=== PATIENT | female | born 1985 | race Caucasian/White ===

== ENCOUNTER 2018-10-23 19:42 | Emergency (ER) | payer MEDICAID ==
[~2018-10-23] VITALS: Ht 157.5 cm; Wt 62.3 kg
[2018-10-23 19:54] VITALS: BP 120/58; PULSE 100; RESP 16; Ht 157.5 cm; Wt 62.3 kg
[2018-10-23] MEDS ORDERED: ACETAMINOPHEN 325 MG TAB PO STA (22:07)
[2018-10-23] MEDS ORDERED: ACET325T33 PO (23:28)
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
== END 2018-10-23 23:48 | disposition home or self-care (01) ==
LOC: FTE 19:42
DX: O26.891 Other specified pregnancy related conditions, first trimester (principal); R10.9 Unspecified abdominal pain; Z3A.11 11 weeks gestation of pregnancy
CPT/HCPCS: 36415; 76801; 81001; 84702; 85025; Z7502; Z7610

== ENCOUNTER 2019-01-19 20:07 | Outpatient (CLI) | payer MEDICAID ==
[~2019-01-19] VITALS: Ht 154.9 cm; Wt 70.5 kg
[~2019-01-19 20:07] MED LIST: ACET325T33 PO
[2019-01-19 20:54] VITALS: BP 103/52; PULSE 101; RESP 18
[2019-01-19] MEDS ORDERED: ACETAMINOPHEN 500 MG TAB PO ONE (21:54)
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
--- NOTE | 2019-01-20 20:08 | PN ---
Triage Information Date/Time 01/19/2019 Reason for visit: vaginal pain, back pain, cramping. Weeks of Gestation 23 weeks and 4 days /Para Diabetes: none Hypertention: none Additional information 33 years old female with IUP at 23 weeks and 4 days and twin gestation and vaginal pain, back pain and cramping pain. 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 Patient denies any urinary symptoms. Denies any LOF, vaginal bleeding or decreased movement. Objective Vital Signs Date Temp Pulse Resp B/P (MAP) Pulse Ox O2 O2 Flow FiO2 Time Delivery Rate 01/19/19 97.4 101 18 103/52 Room Air 20:54 (69) Heart Rate: 130's Contractions: < 5 Minutes Apart Exam GA: A&O, NAD Abdomen: soft, non tender.Size larger than date due to twin gestation NST. Appropriate for GA irrgular contractions noted that resolved with hydration. Results/Medications Result Diagram: 01/19/192229 Results 24 hrs Laboratory Tests Test 01/19/19 20:20 01/19/19 21:35 01/19/19 22:30 Urine Color YELLOW Urine Clarity CLEAR Urine pH 6.0 Urine Specific [place] 1.023 Urine Ketones NEGATIVE Urine Nitrite NEGATIVE Urine Bilirubin NEGATIVE Urine Urobilinogen NEGATIVE Urine Leukocyte Esterase NEGATIVE Urine Microscopic RBC 26 H Urine Microscopic WBC 1 Urine Mucus FEW A Urine Hemoglobin 1+ H Urine Glucose NEGATIVE Urine Total Protein NEGATIVE Urine Opiates Screen Negative Urine Barbiturates Negative Urine Amphetamines Screen POSITIVE Urine Benzodiazepines Screen Negative Urine Cocaine Screen Negative Urine Cannabinoids Negative Membranes Rupture NEGATIVE White Blood Count 13.5 H Red Blood Count 2.98 #L Hemoglobin 8.7 #L Hematocrit 25.7 #L Mean Corpuscular Volume 86.2 Mean Corpuscular Hemoglobin 29.2 Mean Corpuscular Hemoglobin Concent 33.9 Red Cell Distribution Width 13.2 Platelet Count 316 Mean Platelet Volume 8.8 Immature Granulocytes % 3.300 H Neutrophils % 65.5 Lymphocytes % 20.3 Monocytes % 8.5 Eosinophils % 2.0 Basophils % 0.4 Nucleated Red Blood Cells % 0.0 Immature Granulocytes # 0.450 H Neutrophils # 8.8 H Lymphocytes # 2.7 Monocytes # 1.1 H Eosinophils # 0.3 Basophils # 0.1 Nucleated Red Blood Cells # 0.0 Kleihauer-Betke Stain 0.0000 Imaging Results PROCEDURE: US OB twins. CLINICAL INDICATION: labor TECHNIQUE: Multiple sonographic images of the pelvis were obtained. The images were reviewed on a PACS workstation. COMPARISON: 12/29/2018 FINDINGS: The cervix is 3.5 cm in length There is a live twin intrauterine gestation. Twin A: Cardiac activity is present with 152 beats per minute. The fetus is in longitudinal lie, cephalic presentation. The placenta is anterior. Measurements were made in order to determine age. The results are as follows: BPD = 5.9 cm HC = 21.6 cm AC = 19.0 cm FL = 4.3 cm. Based on these current measurements: Estimated gestational age of approximately 23 weeks 6 days. The estimated date of delivery is 05/12/2019. The EFW = 633 g . Twin B: Cardiac activity is present with 134 beats per minute. The fetus is in longitudinal lie, breech presentation. The placenta is posterior. Measurements were made in order to determine age. The results are as follows: BPD = 5.7 cm HC = 21.6 cm AC = 19.9 cm FL = 4.3 cm. Based on these current measurements: Estimated gestational age of approximately 23 weeks 6 days. The estimated date of delivery is 05/11/2019. The EFW = 675 g . Complete survey is not performed at this time. There is a normal amount of amniotic fluid. IMPRESSION: 1. Twin gestation at approximately 23 weeks 6 days by the above biometrics. The estimated date of delivery is 05/11/2019 . 2. positions as noted above. 3. Anterior and posterior placentas. 4. Amniotic fluid volume is well within normal limits. RPTAT:AAJJ Physician Anum Date Time Electronically viewed and signed by Physician Anum on 01/19/2019 21:52 GW/ CC: ALVARO BOSWELL MD [phone] Disposition: Discharge Assessment/Plan IUP Twin gestation at 23 weeks and 4 days Cramps and vaginal pain, due to likely dehyration Symptoms resolved with IV hydration no evidence of Abruption or PPROM or PTL. CBC normal. KB negative History of SA, U tox positive for Meth. 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 Continue Iron and vitamin follow up in 2 days with OB office or sooner PRN PTL precaution, FKC Adequate hydration. . ALVARO BOSWELL MD Jan 20, 2019 20:07
== END 2019-01-20 00:28 | disposition home or self-care (01) ==
LOC: OBT 20:07 → L-D 20:09 → OBT 01-20 00:28
PROVIDERS: ATTEND Obstetrics & Gynecology
DX: O60.02 Preterm labor without delivery, second trimester (principal); Z3A.23 23 weeks gestation of pregnancy; O30.002 Twin pregnancy, unspecified number of placenta and unspecified number of amniotic sacs, second trimester
CPT/HCPCS: 76815; 76817; 80307; 81001; 84112; 85025; 85460; Z7500; Z7610; G0463

== ENCOUNTER 2019-01-31 13:26 | Inpatient (IN) | payer MEDICAID ==
[~2019-01-31] VITALS: Ht 152.4 cm; Wt 69.1 kg
[2019-01-31 14:00] VITALS: Ht 152.4 cm; Wt 69.1 kg
[2019-01-31 14:02] VITALS: BP 101/19; PULSE 101; RESP 20
[2019-01-31] MEDS ORDERED: ACETAMINOPHEN 500 MG TAB PO STA (14:45)
[2019-01-31] MEDS ORDERED: LACTATED RINGER'S 1,000 ML IV SCH (15:36)
--- NOTE | 2019-01-31 15:56 | HP ---
Date/Time of Note Date/Time of Note DATE: 01/31/19 TIME: 15:47 OB - History Hx of Present Free Text/Dictation History of present illness: 33-year-old G 7 P 4 with di-di-twin gestation and complaints of back pain/vaginal pain/inguinal pain. Denies any leakage of fluid or vaginal bleeding. Patient reports that she has not been seen for obstetric care since November due to social restrictions. She has been living in a motel. Obstetric history: General delivery at term x4. SAB x2. Gynecology: Last menstrual period approximately 08/07/2018 with an SAGAR of 05/14/2019 Past medical history: Depression in 2018 Surgical history: None Family history: Noncontributory Social history: negative for tobacco/alcohol/+ for amphetamines drugs Allergies: No known drug allergies Medications: vitamins Physical exam Vitals: Stable General: No apparent distress Cardiovascular: Regular rate and rhythm Pulmonary: Clear to auscultation bilaterally Abdomen: Gravid SVE: 2/50/high Extremities: Nontender to palpation Psychological: Alert oriented labs: Blood type: B positive H/H: 13.4/38.6 Rubella: immune HepBSAg: nonreactive RPR: NR HIV: negative GC/CT: negative GBS: unknown Assessment/plan: 1. 33 yo at 25 2/7 wgaq w labor-to be admitted to labor and delivery. Advised that she will require corticosteroids/magnesium sulfate for neuro protection/neonatology consult and maternal- medicine consult. We will start her on prophylaxis for GBS unknown. Wet mount and GBS pending. Social consult pending. All inquiries addressed. US dating pending records from clinic. By LMP at 25 2/7 weeks gestation 2. Di/Di twin gestation-EFWs 3. AMA-expectant 4. Drug use-urine drug screen 5. Social-social service consult pending. Past Family/Social History * Past Medical, Surgical, Family and Obstetric Histories reviewed from chart. OB Admission Exam Vital Signs Vital Signs Vital Signs Date Temp Pulse Resp B/P (MAP) Pulse Ox O2 O2 Flow FiO2 Time Delivery Rate 01/31/19 98.3 101 20 101/19 Room Air 14:02 (46) SAMREEN NAVARRO MD Jan 31, 2019 15:56
[2019-01-31] MEDS ORDERED: BETAMET NA PHOS/AC(6 MG/ML) 2 ML INJ SYG IM ONE (16:00)
[2019-01-31] MEDS ORDERED: OXYTOCIN 30 UNITS/LR 500 ML IV PRN (16:00)
[2019-01-31] MEDS ORDERED: CARBOPROST 250 MCG INJ IM PRN (16:00)
[2019-01-31] MEDS ORDERED: OXYTOCIN 30 UNITS/LR 500 ML IV SCH ×2 (16:00)
[2019-01-31] MEDS ORDERED: METHYLERGONOVINE 0.2 MG INJ IM PRN (16:00)
[2019-01-31] MEDS ORDERED: MAGNESIUM SULFATE 4 GM/100 ML 100 ML IV SCH (16:00)
[2019-01-31] MEDS ORDERED: MISOPROSTOL 200 MCG TAB PR PRN (16:00)
[2019-01-31] MEDS ORDERED: AMPICILLIN 2 GM/NS (PMX) 100 ML IV ONE (16:00)
[2019-01-31] MEDS ORDERED: NACL 0.9% 3 ML SYG IV SCH ×2 (16:00)
[2019-01-31] MEDS ORDERED: LIDOCAINE 1% (MPF) 30 ML INJ INJ PRN (16:00)
[2019-01-31] MEDS ORDERED: CA GLUCONATE (GM) 10% 10ML INJ IV PRN (16:00)
[2019-01-31] MEDS: LACTATED RINGER'S 1,000 ML IV SCH (16:25)
[2019-01-31] MEDS ORDERED: ONDANSETRON 4 MG INJ ONE (17:38)
[2019-01-31] MEDS ORDERED: ONDANSETRON 4 MG INJ IV STA (17:41)
[2019-01-31] MEDS: BETAMET NA PHOS/AC(6 MG/ML) 2 ML INJ SYG IM ONE (17:52)
[2019-01-31] MEDS: MAGNESIUM SULFATE 20 GM/500 ML 500 ML IV SCH (18:07)
[2019-01-31] MEDS: AMPICILLIN 1 GM/NS (PMX) 50 ML IV SCH (22:06)
[2019-02-01] MEDS: LACTATED RINGER'S 1,000 ML IV SCH ×3 (02:01→18:03)
[2019-02-01] MEDS: AMPICILLIN 1 GM/NS (PMX) 50 ML IV SCH ×6 (02:02→22:00)
[2019-02-01] MEDS: MAGNESIUM SULFATE 20 GM/500 ML 500 ML IV SCH ×3 (04:41→21:36)
--- NOTE | 2019-02-01 12:01 | CONS ---
Assessment/Plan Assessment/Plan Assessment/Plan (Daily) I have spoken to the mother with the help of an spanish medical interpreter as she speaks only Green[place]ic. Explained to her extreme prematurity, extremely low birthweight, attendant risks with twin gestation, respiratory distress syndrome, ventilatory assistance, risk for chronic lung disease and oxygen dependency, survival greater than 80% based on when she delivers, risk for intercurrent infections, antibiotic therapy, high risk for intraventricular hemorrhage, developmental problems including but not limited to delayed milestones, low intelligence, school problems if the baby survive and cerebral palsy, retinopathy of prematurity, vision problems, feeding problems, necrotizing enterocolitis, slow feeding of prematurity, jaundice, and general treatment plan, general procedures done in NICU and alternatives and risks of management. Mom seems to understand the risks with prematurity and wants to go home to take care of her children and she is also positive for methamphetamines . I have explained her about possible blood transfusion and general procedures done in NICU and answered her questions. I have spent 30 to 35 minutes of my time in reviewing the chart, lab tests, ultrasounds, you speaking to the loading dock hand regarding the care and follow, coordinating care with ancillary personnel and most of the time in talking to the mother and dictating consult note. Thank you very much for allowing me to take part in the care of this patient, will follow the mother, and attend the delivery as needed and follow the babies. Consultation Date/Type/Reason Admit Date/Time Jan 31, 2019 at 15:35 Date of Consultation: Feb 01, 2019 Type of Consult consult at 25 and 2/[address] Ovalle. Reason for Consultation labor with short cervix at 25 and 2 / 7 weeks with twin gestation Date/Time of Note DATE: 02/01/19 TIME: 11:52 Hx of Present Illness 33-year-old 8, para 4 3 mom with di amniotic and di chorionic twin gestation admitted with history of back, vaginal and inguinal pain. She had care at [facility] and has not seen a doctor since November due to social reasons. She has been living in a motel with her other 4 children. She has history of 4 term deliveries and 3 spontaneous abortions. LMP is 08/07 and SAGAR is 05/14/2019 . 25 2/7 weeks She is on magnesium sulfate, given 1 dose of betamethasone with the second 1 due today and had ultrasound done with estimated weight of 814 and 887 g. She is afebrile and remains on antibiotics. She is B, Rh+, rubella immune, hep atitis B surface antigen negative, RPR nonreactive, HIV negative, gonococcal and chlamydial cultures negative. Her urine drug screen is positive for amphetamines . Past Medical History Home Meds No Active Prescriptions or Reported Meds Medications Current Medications Lactated Ringer's 1,000 ml @ 125 mls/hr Q8H IV Last administered on 02/01/19at 10:26; Admin Dose 125 MLS/HR; Start 01/31/19 at 15:36 Ampicillin 50 ml @ 100 mls/hr Q4H IV Last administered on 02/01/19at 10:25; Admin Dose 100 MLS/HR; Start 01/31/19 at 20:00 Magnesium Sulfate 500 ml @ 50 mls/hr Q10H IV Last administered on 02/01/19at 04:41; Admin Dose 50 MLS/HR; Start 01/31/19 at 15:36 Calcium Gluconate (Ca Gluc) 1 gm ONCE PRN IV FOR MAGNESIUM TOXICITY; Start 01/31/19 at 16:00 IV Flush (NS 3 ml) 3 ml PER PROTOCOL IV ; Start 01/31/19 at 16:00 Betamethasone Acet/Betameth SodPhos (Celestone Soluspan) 12 mg ONCE ONCE IM ; Start 02/01/19 at 16:00; Stop 02/01/19 at 16:01 Allergies: Coded Allergies: No Known Drug Allergy (Verified Allergy, Unknown, 01/31/19) Social History Smoking Status: Never smoker Exam/Review of Systems Exam Vitals Vital Signs Date Temp Pulse Resp B/P (MAP) Pulse Ox O2 O2 Flow FiO2 Time Delivery Rate 01/31/19 98.4 18:16 01/31/19 101 20 101/19 Room Air 14:02 (46) Intake and Output 01/31/19 01/31/19 02/01/19 1515:00 23:00 07:00 IntakeIntake Total 1175 ml 1770 ml OutputOutput Total 100 ml 2600 ml BalanceBalance 1075 ml -830 ml Results Result Diagram: 01/31/19 1558 Results 24hrs Laboratory Tests Test 01/31/19 15:50 01/31/19 15:58 7/23/19 01:31 02/01/19 06:17 Urine Color YELLOW Urine Clarity CLOUDY A Urine pH 5.0 Urine Specific 1.023 [place] Urine Ketones NEGATIVE Urine Nitrite NEGATIVE Urine Bilirubin NEGATIVE Urine Urobilinogen NEGATIVE Urine Leukocyte 1+ H Esterase Urine Microscopic 3 RBC Urine Microscopic 7 H WBC Urine Squamous MANY A Epithelial Cells Urine Calcium MANY A Oxalate Crystals Urine Bacteria FEW A Urine Mucus MODERATE Urine Hemoglobin NEGATIVE Urine Glucose NEGATIVE Urine Total NEGATIVE Protein Urine Opiates Negative Screen Urine Barbiturates Negative Urine Amphetamines POSITIVE Screen Urine Negative Benzodiazepines Screen Urine Cocaine Negative Screen Urine Cannabinoids Negative White Blood Count 11.9 H Red Blood Count 3.06 L Hemoglobin 8.7 L Hematocrit 26.5 L Mean Corpuscular 86.6 Volume Mean Corpuscular 28.4 L Hemoglobin Mean Corpuscular 32.8 Hemoglobin Concent Red Cell 13.2 Distribution Width Platelet Count 344 Mean Platelet 9.1 Volume Immature 2.100 H Granulocytes % Neutrophils % 65.8 Lymphocytes % 21.2 Monocytes % 8.4 Eosinophils % 1.9 Basophils % 0.6 Nucleated Red 0.0 Blood Cells % Immature 0.250 H Granulocytes # Neutrophils # 7.8 H Lymphocytes # 2.5 Monocytes # 1.0 H Eosinophils # 0.2 Basophils # 0.1 Nucleated Red 0.0 Blood Cells # Prothrombin Time 13.2 Prothrombin Time 1.0 Ratio INR International 0.99 Normalized Ratio Activated 27.[address] Time Magnesium Level 4.7 H 5.1 *H Test 02/01/19 06:29 Lab Scanned Report REFERENCE LAB Medications Medication Current Medications Lactated Ringer's 1,000 ml @ 125 mls/hr Q8H IV Last administered on 02/01/19at 10:26; Admin Dose 125 MLS/HR; Start 01/31/19 at 15:36 Ampicillin 50 ml @ 100 mls/hr Q4H IV Last administered on 02/01/19at 10:25; Admin Dose 100 MLS/HR; Start 01/31/19 at 20:00 Magnesium Sulfate 500 ml @ 50 mls/hr Q10H IV Last administered on 02/01/19at 04:41; Admin Dose 50 MLS/HR; Start 01/31/19 at 15:36 Calcium Gluconate (Ca Gluc) 1 gm ONCE PRN IV FOR MAGNESIUM TOXICITY; Start 01/31/19 at 16:00 IV Flush (NS 3 ml) 3 ml PER PROTOCOL IV ; Start 01/31/19 at 16:00 Betamethasone Acet/Betameth SodPhos (Celestone Soluspan) 12 mg ONCE ONCE IM ; Start 02/01/19 at 16:00; Stop 02/01/19 at 16:01 JOHN MARSH MD Feb 01, 2019 12:01
[2019-02-01] MEDS: BETAMET NA PHOS/AC(6 MG/ML) 2 ML INJ SYG IM ONE (18:07)
[2019-02-02] MEDS: AMPICILLIN 1 GM/NS (PMX) 50 ML IV SCH ×2 (01:58→05:59)
[2019-02-02] MEDS: MAGNESIUM SULFATE 20 GM/500 ML 500 ML IV SCH ×2 (02:03→19:00)
[2019-02-02] MEDS: LACTATED RINGER'S 1,000 ML IV SCH ×4 (02:16→23:36)
--- NOTE | 2019-02-02 02:38 | PN ---
Date/Time of Note Date/Time of Note DATE: 02/02/19 TIME: 02:28 OB Subjective Subjective Subjective Late entry note. Patient seen on 02/01/2019 patient seen and examined. She states good movement. She denies nausea, vomiting, shortness of breath, chest pain, abdominal pain, headache, visual ch anges, vaginal bleeding or LOF. OB Objective Objective Objective General: Patient appears well, alert and oriented, NAD, appropriate mood and affect ABD: gravid, soft, non-tender. Back: No CVA tenderness (B/L) LE: Mild edema. No clubbing, cyanosis, edema, thigh or calf tenderness bilaterally FHT: 130, 135 bpm , moderate variability with acceleration, no deceleration- category I Contractions: Occasional OB Assessment/Plan Other plan: 33 years old -0-3-4 with di-/Di twin gestation at 25 weeks and 3 days with labor. - FHRs: Reassuring. No sign of metabolic acidosis- Category I - Contractions:Occasional - Continuous EFM, toco - She has received 2 dose of betamethasone, last dose at 1800 on 02/02/2008 - She received magnesium sulfate for neuro protection, continue 24 hours after receiving second dose of betamethasone - B+/rubella immune/GBS positive 2. Urine drug screen is positive for amphetamines. She has history of amphetamine abuse too. herbarium worker consult placed JERED MA Feb 02, 2019 02:38
--- NOTE | 2019-02-02 17:39 | QN ---
Documentation Comment 33 years old -0-3-4 with di-/Di twin gestation at 25 weeks and 4 days with labor. - FHRs: Reassuring. No sign of metabolic acidosis- Category I - Contractions:Occasional - Continuous EFM, toco - She has received 2 dose of betamethasone, last dose at 1800 on 02/01/2019, she was seen by perinatologist today who recommend discharge home tomorrow - She received magnesium sulfate for neuro protection, continue 24 hours after receiving second dose of betamethasone - B+/rubella immune/GBS positive 2. Urine drug screen is positive for amphetamines. She has history of amphetamine abuse too. chip loft worker consult appreciated JERED MA Feb 02, 2019 17:39
[2019-02-03] MEDS: MAGNESIUM SULFATE 20 GM/500 ML 500 ML IV SCH (03:36)
[2019-02-03] MEDS: LACTATED RINGER'S 1,000 ML IV SCH (05:12)
--- NOTE | 2019-02-03 06:05 | CONS ---
DATE OF ADMISSION: 01/31/2019 DATE OF CONSULTATION: 02/02/2019 HISTORY OF PRESENT ILLNESS: The patient is currently 25 weeks and 4 days with twin intrauterine preg humberto, presented with contractions. Cervical exam is above 2 cm. She is currently without any contr actions on magnesium sulfate and status post betamethasone x2. PAST MEDICAL HISTORY: Significant for depression. She currently is not suicidal or homicidal. Also of recent methamphetamine use as recent as Thursday. SOCIAL HISTORY: Significant for the patient is homeless and currently lives at a hotel. PHYSICAL EXAMINATION: VITAL SIGNS: Stable. Physical exam deferred. She is having twice weekly monitoring. Appropriate for gestational age, no contractions. IMPRESSION: Twin intrauterine at 25 weeks and 4 days on magnesium sulfate and status post betamethasone x2, depression, without any suicidal or homicidal ideations, methamphetamine use. I sp parveen to her about the effect of methamphetamine on her health and heart, which include, but not limited to, hypertension, placental abruption, , maternal stroke or LA, intrauterine growth restriction. She currently lives at a hotel. RECOMMENDATIONS: Magnesium sulfate was discontinued per a primary MD this evening. I do recommend f or the patient to stay overnight and tomorrow. If there is no change in the cervix and a contraction can be discharged with labor precautions. Follow up with her primary clinic and obviously, I am against the use of methamphetamine. Dictated By: IRAIDA MORENO/ÓMNICA Conf#: [id number] DID#: [id number]
--- NOTE | 2019-02-03 18:03 | PN ---
Date/Time of Note Date/Time of Note DATE: 02/03/19 TIME: 18:00 OB Subjective Subjective Subjective Patient denies any contraction, leaking of fluid, vaginal bleeding or decreased movement. Reports has been uncomfortable being in the hospital. Reports good movement. Feels depressed because could not have shower. requests to have a shower Examination: General appearance: Alert and oriented x4 does not appear to be in any acute distress Abdomen: Soft, gravid, fundal height consider gestational age NST: Category 1 for 2 fetuses Extremities: No calf tenderness, no click no edema no cord palpable Physical examination: IUP at 25 weeks and 5 days Twin gestation contractions, status post magnesium and steroids for lung maturity Currently off of magnesium. She is a stable and asymptomatic. Status post perinatology consultation Recommended to be discharged home tomorrow if she remains stable and asymptomatic with a follow-up with primary OB office within 2 to 3 days after discharge from the hospital with a strict labor precaution and rest at home and kick count Can have shower today. Continue watch closely today Anticipate discharge home tomorrow if remains stable and asymptomatic Plan of care discussed with the patient ALVARO BOSWELL MD Feb 03, 2019 18:03
[2019-02-04] MEDS ORDERED: LACTATED RINGER'S 1,000 ML IV SCH (12:30)
--- NOTE | 2019-02-04 16:29 | PD.PPDC ---
FERRYBOAT OPERATOR CABLE Discharge Instruction Diagnosis [id number] Final Diagnosis: Rcula3h IUP 25w6d, twin gestation, PTL Condition [id number] Patient Condition: [id number] Stable Diet [id number] Diet: [id number] Resume Regular Diet Activity/Restrictions [id number] Activity: [id number] Bedrest [id number] Restrictions: [id number] No Exercising No Lifting No Driving Minimize Walking Minimize Stair-climbing No Sexual Activity Nothing in the Vagina No [place] No Tampons, douche Return to clinic for Comment: RTH immediatly with routine labor instructions ERIKA SCHILLING MD Feb 04, 2019 16:29
--- NOTE | 2019-02-04 16:34 | DS ---
Date/Time of Note Date/Time of Note DATE: 02/04/19 TIME: 16:29 Obstetrical Discharge Record Final Diagnosis Final Diagnosis: not delivered Complications Labor Augmentation: No Induction: No Rupture of Membranes: No Condition on Discharge Physical Assessment Last Vitals: EFM no uterine contractions no subjective symptoms s/p BMZx2 Mg S04 twin gestation markos rec to d/s home with complete bed rest Voiding: No Bowel Movement: No Breast: Soft, non-tender Fundus: Other ( ) Abdomen and Incision: Episiotomy: n/a Calf Tenderness: No Patient Condition: Stable ERIKA SCHILLING MD Feb 04, 2019 16:34
== END 2019-02-04 16:30 | disposition home or self-care (01) | DRG 832 ==
LOC: L-D 13:26 → OBT 13:26 → L-D 13:33 → OBT 15:35 → L-D 15:35
PROVIDERS: ADMIT Obstetrics & Gynecology; ATTEND Obstetrics & Gynecology
DX: O30.002 Twin pregnancy, unspecified number of placenta and unspecified number of amniotic sacs, second trimester (principal); O26.872 Cervical shortening, second trimester; O47.02 False labor before 37 completed weeks of gestation, second trimester; O99.322 Drug use complicating pregnancy, second trimester; O09.522 Supervision of elderly multigravida, second trimester; F15.90 Other stimulant use, unspecified, uncomplicated; Z3A.25 25 weeks gestation of pregnancy
CPT/HCPCS: 76815; 76817; 80307; 81001; 81003; 83735; 85025; 85610; 85730; 86592; 86850; 86900; 86901; 87086; 87210; G0463; J0290; J0702; J2405; J3475; J7120